=== PATIENT | female | born 1935 | race Caucasian/White ===

== ENCOUNTER 2018-09-20 19:03 | Inpatient (IN) | payer MEDICARE, BC ==
--- OUTSIDE RECORDS SUMMARY | 2018-09-20 19:17 | XMS REPORT | Continuity of Care Document ---
:1935 External Reference #:[id number] Author Name Eugenio Humphrey Care Team Providers Name Role Phone Ayanna Barakat MD Primary Care Physician Unavailable Payers Date Identification Numbers Payment Provider Subscriber Policy Number: [id number] Medicare Shonda Hudson PayID: [id number] [facility] [address] [place] [address] Problems Active Problems Provider Date Closed fracture of clavicle Wendy Turcios M.D. Onset: 09/07/2018 Family History Date Family Member(s) Observation Comments General Diabetes General Heart Disease General Hypertension General Cancer Social History Type Date Description Comments Sex Unknown Lives With Spouse Occupation Retired ETOH Use Occasionally consumes alcohol Tobacco Use Start: Unknown End: Patient is a former smoker Unknown Smoking Status Reviewed: 09/07/18 Patient is a former smoker Exercise Type/Frequency Exercises sporadically Allergies, Adverse Reactions, Alerts Description No Known Drug Allergies Medications Active Medications SIG Qnty Indications Ordering Provider Date Levothyroxine Sodium Unknown Vital Signs Date Vital Result Comment 09/07/2018 11:20am Height 69 inches 5'9" Weight 125.00 lb BP Systolic 130 mmHg BP Diastolic 80 mmHg Body Temperature 98.9 F BMI (Body Mass Index) 18.5 kg/m2 Plan of Treatment 09/07/2018 - Wendy Turcios M.D.M25.512 Pain in left shoulderNew Xrays:Shoulder Left 2+ VWS, Ordered: 09/07/18Follow up:Follow up: 2 [id number] Fracture of unspecified part of left clavicle, initial encou
--- NOTE | 2018-09-20 20:49 | ED ---
Adult Trauma - HPI Summary HPI Summary: 82-year-old female presents with head injury and neck pain today. She was walking and she believes she tripped and fell backwards and hit her head and injured her neck. per they had dinner together and were dancing in [employer]. It was dark out and she ended up tripped and falling first onto her butt and then her head hit the pavement. Her leg may have given out per . She denies any leg pain at this time. She denies any chest pain or shortness of breath. fall was a mechanical fall. She has a history of dementia. She is not on blood thinners. No loss consciousness. No nausea or vomiting. Denies any dizziness. no chest pain or shortness of breath. States she just has pain on the right side of her neck. No other injury. Denies any hip pain. has a healing right clavicle fracture. has a jc in one of hips for previous fracture. history is provided by due to patient dementia. states that she is not on her thyroid medication currently as they r monitoring her tsh. - History of Current Complaint Chief Complaint: EDNeckComplaint Stated Complaint: FALL, HEAD INJURY, NECK/LEFT LEG PAIN PER SON Time Seen by Provider: 09/20/18 20:35 Pain Intensity: 10 - Allergy/Home Medications Allergies/Adverse Reactions: Allergies Allergy/AdvReac Type Severity Reaction Status Date / Time MS Stark [From Novocain] Allergy DIZZINESS Verified 09/20/18 19:11 AND PASSES OUT Home Medications: Home Medications Ergocalciferol CAP* [Drisdol CAP*] 50,000 unit PO WEEKLY 09/20/18 [History Confirmed 09/20/18] Escitalopram * 5 mg PO DAILY 09/20/18 [History Confirmed 09/20/18] Vitamin B12 1,000 mcg PO DAILY 09/20/18 [History Confirmed 09/20/18] PMH/Surg Hx/FS Hx/Imm Hx Endocrine/Hematology History: Reports: Hx Thyroid Disease - HYPOTHYROID Denies: Hx Anticoagulant Therapy Cardiovascular History: Denies: Hx Pacemaker/ICD Musculoskeletal History: Reports: Hx Arthritis Sensory History: Reports: Hx Contacts or Glasses - GLASSES FOR DISTANCE, Hx Hearing Aid - BILATERAL Opthamlomology History: Reports: Hx Contacts or Glasses - GLASSES FOR DISTANCE Psychiatric History: Denies: Hx Panic Disorder - Surgical History Surgery Procedure, Year, and Place: TONSILS AGE 3. LEFT HIP SURGERY. COLONOSCOPY Hx Anesthesia Reactions: No Infectious Disease History: No Infectious Disease History: Denies: Traveled Outside the [place] in Last 30 Days - Family History Known Family History: Positive: Non-Contributory - Social History Alcohol Use: Weekly Alcohol Amount: 1 X 3-4 TIMES PER WEEK Substance Use Type: Reports: None Smoking Status (MU): Former Smoker Amount Used/How Often: X 10-15 YEARS Review of Systems Negative: Fever Negative: Chest Pain Negative: Shortness Of Breath Positive: Myalgia - neck pain Negative: Headache All Other Systems Reviewed And Are Negative: Yes Physical Exam Triage Information Reviewed: Yes Vital Signs On Initial Exam: Initial Vitals Temp Pulse Resp BP Pulse Ox 97.7 F 66 14 159/76 96 09/20/18 19:04 09/20/18 19:04 09/20/18 19:04 09/20/18 19:04 09/20/18 19:04 Vital Signs Reviewed: Yes Appearance: Positive: Well-Appearing Skin: Positive: Warm, Dry Head/Face: Positive: Normal Head/Face Inspection Eyes: Positive: Normal, Conjunctiva Clear ENT: Positive: Pharynx normal Respiratory/Lung Sounds: Positive: Clear to Auscultation, Breath Sounds Present Cardiovascular: Positive: Normal, RRR Abdomen Description: Positive: Nontender, Soft Bowel Sounds: Positive: Present Musculoskeletal: Positive: Strength/ROM Intact - legs, Other - nontender legs, good pulses, nontender arms Neurological: Positive: Sensory/Motor Intact, Alert, Oriented to Person Place, Time, CN Intact II-III Psychiatric: Positive: Normal - Carine Coma Scale Best Eye Response: 4 - Spontaneous Best Motor Response: 6 - Obeys Commands Best Verbal Response: 5 - Oriented Coma Scale Total: 15 Diagnostics - Vital Signs Vital Signs Temp Pulse Resp BP Pulse Ox 09/20/18 19:04 97.7 F 66 14 159/76 96 - Laboratory Result Diagrams: 09/20/18 22:32 09/20/18 22:32 Lab Statement: Any lab studies that have been ordered have been reviewed, and results considered in the medical decision making process. - CT brain CT Interpretation Completed By: Radiologist Summary of CT Findings: IMPRESSION: No acute intracranial abnormality. neck CT Interpretation Completed By: Radiologist Summary of CT Findings: IMPRESSION: Transverse fracture through the body of C2 with mild displacement. Nondisplaced right C7 laminar fracture. thoracic CT Interpretation Completed By: Radiologist Summary of CT Findings: IMPRESSION: No thoracic spine fracture or other acute traumatic CT pathology. pelvis CT Interpretation Completed By: Radiologist Summary of CT Findings: IMPRESSION: There are acute mildly displaced fractures of the left superior and inferior. pubic rami and left pubic bone. lumbar CT Interpretation Completed By: Radiologist Summary of CT Findings: IMPRESSION: No acute lumbar spine fracture. - EKG No standard instances Cardiac Rate: NL EKG Rhythm: Sinus Rhythm Summary of EKG Findings: sinus rhythm Re-Evaluation - Re-Evaluation First Eval Comment: discussed results with Second Eval Re-Evaluation Time: 23:42 Comment: patient now states head hurts which did not before Adult Trauma Course/Dx - Course Course Of Treatment: 82-year-old female presents with head injury and neck pain today. She was walking and she believes she tripped and fell backwards and hit her head and injured her neck. Her leg may have given out. She denies any leg pain at this time. She denies any chest pain or shortness of breath. fall was a mechanical fall. She has a history of dementia. She is not on blood thinners. No loss consciousness. No nausea or vomiting. Denies any dizziness. States she just has pain on the right side of her neck. No other injury. Denies any hip pain. On exam normal neuro exam. Tenderness over right side of neck. Patient was placed in a c-collar. Nontender hips. Full range of motion of hips. Nontender legs. CT brain shows no acute findings. CT neck shows c2 fracture. spoke with dr kenny who recommends admission and [place] j collar. although patient had no pain in hips on exam patient complainted to aide that has left hip pain so will get CT pelvis. CT pelvic shows pubic rami fracture. discussed case with dr carvajal who agrees to admit. placed patient in atka j. - Diagnoses Differential Diagnosis/HQI/PQRI: Positive: Contusion(s), Fracture, Sprain Provider Diagnoses: Fall, Head injury, C2 cervical fracture, Pubic ramus fracture, C7 cervical fracture Discharge - Sign-Out/Discharge Documenting (check all that apply): Patient Departure - Discharge Plan Condition: Stable Disposition: ADMITTED TO [facility] Referrals: Ayanna Barakat MD [Primary Care Provider] - - Billing Disposition and Condition Condition: STABLE Disposition: Admitted to [facility]
[2018-09-20 22:40] LABS: ABS Basophils 0.1 10^3/ul (0-0.2); ABS Eosinophils 0.2 10^3/ul (0-0.6); ABS Lymphocytes 2.1 10^3/ul (1.0-4.8); ABS Neutrophils 12.4 10^3/ul (1.5-7.7); Eosinophil % 1.3 %; Hematocrit 37 % (35-47); Hemoglobin 12.4 g/dL (12.0-16.0); Lymphocyte % 13.1 %; Mean Corpuscular HGB Conc 33 g/dL (31-36); Mean Corpuscular Hemoglobin 27 pg (27-31); Mean Corpuscular Volume 81 fL (80-97); Mean Platelet Volume 7.7 fL (7.4-10.4); Platelet Count 280 10^3/uL (150-450); Red Blood Count 4.57 10^6 /uL (3.70-4.87); Red Cell Distribution Width 14 % (10-15); White Blood Count 15.7 10^3/uL (3.5-10.8)
[2018-09-20 22:50] LABS: Activated Partial Thrombo Time 36.6 seconds (26.0-38.0); INR 0.93 (0.82-1.09)
[2018-09-20 22:56] LABS: Albumin 4.1 g/dL (3.2-5.2); Albumin/Globulin Ratio 1.3 (1-3); BUN/Creatinine Ratio 17.7 (8-20); Calcium 9.3 mg/dL (8.6-10.3); EGFR Non-African American 55.4 (>60); Globulin 3.1 g/dL (2-4); Potassium 4.3 mmol/L (3.5-5.0); Total Bilirubin 0.3 mg/dL (0.2-1.0); Total Protein 7.2 g/dL (6.4-8.9)
[2018-09-20] MEDS ORDERED: Acetaminophen TAB* 325 MG PO ONE (23:20)
--- NOTE | 2018-09-21 02:10 | HP ---
HISTORY AND PHYSICAL: DATE OF ADMISSION: 09/21/18 PRIMARY CARE PROVIDER: Dr. Barakat. CHIEF COMPLAINT: Fall. HISTORY OF PRESENT ILLNESS: Ms. Hudson is an 82-year-old with a history of dementia, hypothyroidism, and depression, who was out with her after dinner, dancing on [employer] when she suffered a mechanical fall. It was stated that she tripped. She fell down landing first on her buttocks then hitting her head on the pavement. The patient is unable to tell me any other history. She tells me that she rolled out of bed. The patient's is not present at the time of my evaluation. The patient currently reports no pain whatsoever. PAST MEDICAL HISTORY: 1. Depression. 2. Hypothyroidism. 3. Dementia. PAST SURGICAL HISTORY: 1. Tonsillectomy. 2. Left hip ORIF. ALLERGIES: No known drug allergies. MEDICATIONS: 1. Vitamin B12 1000 mcg p.o. daily. 2. Ergocalciferol 50,000 units p.o. weekly. 3. Lexapro 5 mg p.o. daily. FAMILY HISTORY: Mom had diabetes, dad had thyroid cancer; this is based off prior documented history and physical. SOCIAL HISTORY: The patient is a former smoker. She is unable to tell me when she quit, she states it was many years ago. She does admit to drinking 1 glass of wine 2 to 3 times a week. She lives with her . She is . She has 3 children. Her is her healthcare proxy. REVIEW OF SYSTEMS: A complete 11-system review of systems was obtained. Pertinent positives and negatives are as per HPI; however, again the patient has dementia, I question the validity of her answers as she asks me approximately 5 times in the course of 20 minutes what my name is. PHYSICAL EXAMINATION GENERAL: The patient is a well-developed, petite, elderly female seen sitting up in the stretcher with a cervical collar in place, in no acute distress. VITAL SIGNS: Blood pressure 160/81, pulse 75, respirations 14, temp 97.7, O2 sat 96% on room air. HEENT: Pupils are equal and round. Extraocular muscles are intact. Oropharynx is clear. Oral mucosa is slightly dry. NECK: Exam is deferred as the patient is in a cervical collar. CARDIAC: Normal S1, S2. Regular rate and rhythm. I do not appreciate any murmurs. There is no lower extremity edema. PULMONARY: Lungs are clear to auscultation anteriorly and at the lateral bases. ABDOMEN: Bowel sounds are present. Abdomen is soft, nontender, nondistended. The patient states that she has to urinate, but she has a catheter in place. MUSCULOSKELETAL: There is no cyanosis or clubbing of the digits. There is full active range of motion of all 4 extremities. NEURO: Cranial nerves II through XII are grossly intact. Sensation is intact to light touch throughout. Strength is 5/5 and symmetric in both upper and lower extremities bilaterally. PSYCH: The patient is very confused. SKIN: Warm and dry. There are no rashes. The patient does have a scabbed over excoriation on the left knee. There is also purplish bruise overlying the left alamo. DIAGNOSTIC STUDIES/LAB DATA: WBC 15.7, hemoglobin 12.4, hematocrit 37, platelets 280. INR 0.93. Sodium 139, potassium 4.3, chloride 105, CO2 29, BUN 17, creatinine 0.96, glucose 114, calcium 9.3, bilirubin 0.3. AST 23, ALT 17, alk phos 115. Albumin 4.1. EKG reveals normal sinus rhythm with nonspecific ST-T wave abnormalities. Cervical spine CT reveals transverse fracture through the body of C2 with mild displacement and a nondisplaced right C7 laminar fracture. Lumbar spine CT: No acute lumbar spine fracture. Thoracic spine CT: No thoracic spine fracture or other acute traumatic CT pathology. CT brain: There is no acute intracranial abnormality. Pelvis CT: There are acute mildly displaced fractures of the left superior and inferior pubic rami and left pubic bone. ASSESSMENT: Ms. Hudson is an 82 yo relatively healthy female who has dementia and hypothyroidism who was dancing with her when she had a mechanical fall landing first onto her buttock then striking her head on the pavement and was found to have left pelvic fractures and C2 and C7 fractures. PLAN: 1. Left pelvic fractures: The patient will be weight bearing as tolerated. Continue Tylenol for pain control. PT eval will be needed once she is off bedrest which I anticipate will be after she is seen by Neurosurgery. 2. C2 and C7 fractures: The patient remains in a cervical collar. A more properly fitting [place] J collar will need to be obtained. Dr. Burt has been contacted by the ER provider and he will see her in the morning. Continue Tylenol for pain control. 3. Hypothyroidism: The patient is reportedly temporarily off her synthroid. Dr. Barakat will be taking over in the morning and can decide what to do with her dosing. 4. Dementia: Continue supportive care. 5. Depression: Continue lexapro. 6. DVT prophylaxis: SQ heparin 7. Full code [id number]/CPS #: [id number] MTDD
[2018-09-21 04:02] LABS: Urine Appearance Clear; Urine Bacteria Absent (Absent); Urine Bilirubin Negative (Negative); Urine Blood 1+ (Negative); Urine Color Straw; Urine Glucose Negative (Negative); Urine Ketones Negative (Negative); Urine Nitrite Negative (Negative); Urine Protein Negative (Negative); Urine Red Blood Cell 2+(6-10/hpf) (Absent); Urine Squamous Epithelial Cell Present (Absent); Urine Urobilinogen Negative (Negative); Urine White Blood Cell Trace(0-5/hpf) (Absent)
[2018-09-21] MEDS: Heparin VIAL(*) 5000 UNITS/ML VIAL (FIVE THOUSAND) SUBCUT SCH ×3 (05:39→21:57)
[2018-09-21] MEDS: Acetaminophen TAB* 325 MG PO PRN ×2 (05:41→20:03)
--- NOTE | 2018-09-21 05:46 | CONS ---
CONSULTATION REPORT: DATE OF CONSULT: 09/21/18 HISTORY OF PRESENT ILLNESS: The patient is a very pleasant 82-year-old female with history of dementia who presented to the emergency room after a reported fall after having dinner with her and dancing in the [employer]. We were requested to see the patient by the emergency room team because of CT scan findings consistent with a C2 type 3 fracture. The patient also had a trauma workup, was found to have pelvic fractures. Patient had recently been diagnosed with a clavicular fracture. The patient is , lives with her , who accompanied her at the emergency room visit. The patient was seen at the emergency room. History was limited because of the patient's dementia. Details were obtained from patient's records. PAST MEDICAL HISTORY: The patient is not able to provide any history. Per the hospital records, the patient has a history of dementia, thyroid disease, arthritis, hearing aids. PAST SURGICAL HISTORY: Tonsillectomy, left hip surgery, and colonoscopy. MEDICATIONS: The patient was on: 1. Ergocalciferol. 2. Citalopram. 3. Vitamin B12. ALLERGIES: PROCAINE, FAMILY HISTORY: Noncontributory. SOCIAL HISTORY: Tobacco negative. The patient is a former smoker. Alcohol weekly. Recreational use negative. The patient is retired. 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 PHYSICAL EXAM: The patient is not in acute distress. She is awake, alert, and oriented x1. Her pupils are equal and reactive. Cranial nerves II through XII are grossly intact. Motor 4 to 5/5 in all extremities. Sensory grossly intact to light touch. Deep tendon reflexes are +1 bilaterally. No clonus, no Babinski's. Lyndon's negative. Straight leg raise is negative in the sitting position. The patient has no tenderness to palpation of the thoracic, and lumbar spine. She does have [place]-J collar and she has mild tenderness to palpation of cervical spine. DIAGNOSTIC STUDIES/LAB DATA: The patient had a CT scan of the brain that did not reveal any acute intracranial abnormalities. There were no specific calcification as reported in radiology report. The patient had a CT scan of the cervical spine revealing a C2 type 3 fracture with no significant displacement and a right C7 lamina fracture. The patient had a CT scan of the thoracic and lumbar spine that revealed scoliosis, degenerative disease, but no evidence of fracture. ASSESSMENT: The patient is a very pleasant 82-year-old female who is status post a fall with C2 type 3 fracture and pelvic fractures. PLAN: The patient at this point is doing quite well. She has tolerated the [place]- J collar quite well. We would advocate for conservative treatment in the beginning and close observation as type 3 fractures have the potential of healing. A small percentage of this though will develop instability or displacement and will require surgical intervention. For this reason, I would recommend to keep the [place]-J collar on. The patient may benefit from CTA of the neck as the fracture line crosses the foramen transversarium. Thank you for allowing us to participate in the care of this patient. Please do not hesitate to contact our office in case you have any further questions or concerns regarding the care of this patient. [id number]/CPS #: [id number] NICKOLAS
[2018-09-21] MEDS: Escitalopram * 5 MG TAB PO SCH (09:38)
[2018-09-21] MEDS: Levothyroxine TAB* 50 MCG TAB PO SCH (09:38)
[2018-09-21] MEDS: Cyanocobalamin TAB* 500 MCG PO SCH (09:38)
[2018-09-21] MEDS ORDERED: Iodixanol* (CONTRAST) 320 MG/ML 100 ML SDV IV ONE (10:08)
[2018-09-22] MEDS: Acetaminophen TAB* 325 MG PO PRN ×6 (00:09→23:42)
[2018-09-22] MEDS: Levothyroxine TAB* 50 MCG TAB PO SCH (05:30)
[2018-09-22] MEDS: Heparin VIAL(*) 5000 UNITS/ML VIAL (FIVE THOUSAND) SUBCUT SCH ×3 (05:30→21:46)
[2018-09-22 06:06] LABS: ABS Basophils 0.1 10^3/ul (0-0.2); ABS Eosinophils 0.1 10^3/ul (0-0.6); ABS Lymphocytes 1.9 10^3/ul (1.0-4.8); ABS Monocytes 0.8 10^3/ul (0-0.8); ABS Neutrophils 7.8 10^3/ul (1.5-7.7); Hematocrit 38 % (35-47); Hemoglobin 12.7 g/dL (12.0-16.0); Lymphocyte % 18.2 %; Mean Corpuscular HGB Conc 34 g/dL (31-36); Mean Corpuscular Hemoglobin 27 pg (27-31); Mean Corpuscular Volume 80 fL (80-97); Mean Platelet Volume 8.1 fL (7.4-10.4); Nucleated Red Blood Cells % 0.1; Platelet Count 268 10^3/uL (150-450); Red Blood Count 4.74 10^6 /uL (3.70-4.87); Red Cell Distribution Width 14 % (10-15); White Blood Count 10.6 10^3/uL (3.5-10.8)
[2018-09-22 06:21] LABS: BUN/Creatinine Ratio 14.9 (8-20); Calcium 9.3 mg/dL (8.6-10.3); EGFR African American 90.5 (>60); EGFR Non-African American 74.8 (>60); Potassium 3.8 mmol/L (3.5-5.0)
[2018-09-22] MEDS: Escitalopram * 5 MG TAB PO SCH (08:41)
[2018-09-22] MEDS: Cyanocobalamin TAB* 500 MCG PO SCH (08:41)
[2018-09-22] MEDS ORDERED: Senna TAB PO PRN (11:47)
[2018-09-22] MEDS ORDERED: Magnesium Hydroxide LIQ* 30 ML UDC PO PRN (11:48)
[2018-09-22] MEDS: Docusate CAP* 100 MG PO SCH ×2 (12:08→21:46)
--- NOTE | 2018-09-22 13:27 | PN ---
Progress Note - Progress Note Date of Service: 09/22/18 SOAP: Subjective: []No events ON. Tolerates MJ collar well. and son at bedside this am. Not OOB yet. Objective: []VSS AAOx1, IAN, CN II-XII grossly intact Motor 4-5/5 all exremities. No pronator drift Sensory grossly intact to light touch. Assessment: []82 yo f sp fall C2 Type III fracture, Rt C7 lamina fracture. Pelvic fractures , recent clavicle fracture Plan: []Monitor VS, Neurochecks Maintain MJ collar at all times CTA revealed good alignment of spine without displacement of fracture or injury to vertebral arteries. Discussed with patient's and son in extend regarding patient's condition and radiological findings as well as treatment options including immobilization with MJ collar and repeated imaging vs surgical intervention. Risks and benefits of each approach were discussed in details, including displacement of fracture, pseudoarthrosis, neurological injury, paralysis, , vascular injury and stroke. Patient's and son would favor conservative treatment with collar and frequent observation for now, but will discuss and notify us if would like to consider surgical intervention. XR of Cspine today or tomorrow. Appreciate IM care. Yvrose Burt MD
--- NOTE | 2018-09-22 14:16 | CONS ---
CONSULTATION REPORT: DATE OF CONSULT: 09/22/18 ATTENDING PHYSICIAN: Nixon Hassan MD CHIEF COMPLAINT: Left shoulder and pelvis. HISTORY OF PRESENT ILLNESS: Ms. Hudson is an 82-year-old female, who had presented to the hospital on [place] She had landed first on her buttocks and then hit her head on the pavement. She was unable to give any medical history, but this is also due to her history of dementia. Similarly, she was unable to tell me any of the history and said she would prefer to go back to sleep, so I did not get much of a story from her and the history is from her chart. When she was in the emergency room, she was worked up and was found to have a C2 fracture and was placed into a collar. CAT scan of the pelvis was also obtained, which found a nondisplaced pubic rami fracture as well. She also has a left clavicle fracture, which was sustained on 09/06/18, from an unwitnessed fall at home. She had seen my partner, Dr. Turcios, for this and considering she was well aligned, she was to have followed up on Monday for a check and make sure she was doing well. When I asked her if she has any trouble, she reports that she is doing alright. PAST MEDICAL HISTORY: Depression, hypothyroidism, dementia. PAST SURGICAL HISTORY: 1. Tonsillectomy. 2. Percutaneous pinning, left hip, 2006, by Dr. Ring. MEDICATIONS ON ADMISSION: 1. Vitamin B12. 2. Vitamin D. 3. Lexapro 5 mg daily. MEDICATION ALLERGIES: No known drug allergies. FAMILY HISTORY: Noncontributory. SOCIAL HISTORY: Noncontributory. REVIEW OF SYSTEMS: There is a review of systems on her H and P. PHYSICAL EXAM: General: Elderly female, in a cervical collar, sleeping in the hospital bed. She is easily arousable, but does drift off fairly quickly. Left shoulder: She holds the arm in adduction, but when I asked her to, she can come out into neutral and bring the arm up to 45 degrees of forward elevation. Palpation finds some soreness over the distal clavicle, but it is difficult to say if this was from the motion or the clavicle itself. Pelvis: she is stable to compression as well as rotation about the pelvis. DIAGNOSTIC STUDIES: X-rays of the clavicle as well as a CAT scan of the pelvis are available for review. Clavicle x-rays show good alignment of the distal clavicle where she has the fracture. She also has a significant amount of osteoarthritic change where she is completely [id number] in the glenohumeral joint. In regards to the pelvis, she has a rami fracture, which is nondisplaced. ASSESSMENT: 1. Healing left clavicle fracture. 2. Osteoarthritis, left shoulder. 3. Nondisplaced pelvic fracture. PLAN: I did try to discuss with her a little bit what was going on and she reports that she would just like to go back to sleep. In regards to the left shoulder, she may fully weightbear as tolerated, so she can use a walker to help support herself, but I do not believe she will be able to tolerate much. Even without the fracture, she is [id number] in the glenohumeral joint and that also can be quite limiting for weightbearing on the upper extremity. If however, she tolerates it well, she may obviously then continue with full weight on her left upper extremity. In regards to the pelvis , she has a stable pattern with no concerning issue, so she may fully weightbear without restriction on her lower extremities. Considering she has sustained a spine fracture and a pelvis fracture, 2 weeks prior sustained a distal clavicle fracture and in 2006 sustained a femoral neck fracture which required a percutaneous pinning and Dr. Ring documented a distal radius fracture several months prior to that, once she is out and moving a bit better, a followup bone density scan to see if being more aggressive with one of the newer osteoporosis medications can hopefully reduce some of her morbidity in the future. Her last DEXA screen was in 2009, which had found osteopenia of the lumbar spine and osteoporosis of the right hip. [id number]/[facility] #: [id number] NICKOLAS
[2018-09-22] MEDS: RIVASTIGMINE 13.3 MG TRANSDERM SCH (17:26)
[2018-09-23] MEDS: Heparin VIAL(*) 5000 UNITS/ML VIAL (FIVE THOUSAND) SUBCUT SCH ×3 (05:48→22:20)
[2018-09-23] MEDS: Levothyroxine TAB* 50 MCG TAB PO SCH (05:48)
[2018-09-23] MEDS: Acetaminophen TAB* 325 MG PO PRN (08:35)
--- NOTE | 2018-09-23 09:34 | PN ---
Subjective - Subjective Reason for Note: Progress Note History: She has dementia with limited short term memory. She is in [facility], knows her name, has no idea of the date/year. She cannot give an account of herself - why she is in the hospital. She denies any pain. According to PT, she is reluctant to mobilize, but she has been to and fro the bathroom with assists. Active Problems: Active Problems C7 cervical fracture (Acute) S12.600A Closed C2 fracture (Acute) S12.100A Fall at home (Acute) W19.XXXA, Y92.009 Fracture of multiple pubic rami (Acute) S32.599A Pubic bone fracture (Acute) S32.509A Alzheimer disease (Chronic) G30.9, F02.80 Body mass index (BMI) less than 16.5 (Chronic) Z68.1 Closed left clavicular fracture (Chronic) S42.002A Hypothyroidism (Chronic) E03.9 Osteoporosis (Chronic) M81.0 Sarcopenia (Chronic) M62.84 Current Medications: Current Medications Acetaminophen (Tylenol Tab*) 650 mg PO Q4H PRN PRN Reason: PAIN Last Admin: 09/23/18 08:35 Dose: 650 mg Cyanocobalamin (Vitamin B12 Tab*) 1,000 mcg PO DAILY [facility] Last Admin: 09/22/18 08:41 Dose: 1,000 mcg Docusate Sodium (Colace Cap*) 100 mg PO BID [facility] Last Admin: 09/22/18 21:46 Dose: 100 mg Escitalopram Oxalate (Lexapro *) 5 mg PO DAILY [facility] Last Admin: 09/22/18 08:41 Dose: 5 mg Heparin Sodium (Porcine) (Heparin Vial(*)) 5,000 units SUBCUT Q8HR [facility] Last Admin: 09/23/18 05:48 Dose: 5,000 units Levothyroxine Sodium (Synthroid Tab*) 50 mcg PO DAILY@0600 [facility] Last Admin: 09/23/18 05:48 Dose: 50 mcg Magnesium Hydroxide (Milk Of Magnesia Liq*) 30 ml PO DAILY PRN PRN Reason: CONSTIPATION Pto:Rivastigmine 13. (3 Mg Patch) 13.3 mg TRANSDERM DAILY [facility] Last Admin: 09/22/18 17:26 Dose: 13.3 mg Senna (Senokot Tab*) 1 tab PO BEDTIME PRN PRN Reason: CONSTIPATION Home Medications: Home Medications Medication Instructions Recorded Confirmed Type Ergocalciferol CAP* [Drisdol CAP*] 50,000 unit PO WEEKLY 09/20/18 09/20/18 History Escitalopram * 5 mg PO DAILY 09/20/18 09/20/18 History Vitamin B12 1,000 mcg PO DAILY 09/20/18 09/20/18 History Allergies: Allergies Allergy/AdvReac Type Severity Reaction Status Date / Time procaine Allergy Dizziness Verified 09/21/18 01:40 Objective - Vital Signs Vital Signs: Vital Signs 09/22/18 09/22/18 09/22/18 11:23 16:07 20:05 Temperature 97.5 F 98.1 F Pulse Rate 82 60 Respiratory 18 18 18 Rate Blood Pressure 134/71 140/55 (mmHg) O2 Sat by Pulse 97 96 Oximetry 09/22/18 09/22/18 09/23/18 20:06 23:34 04:00 Temperature 97.8 F 98.2 F 98.0 F Pulse Rate 69 71 76 Respiratory 18 16 17 Rate Blood Pressure 161/64 155/76 148/67 (mmHg) O2 Sat by Pulse 99 96 97 Oximetry 09/23/18 07:35 Temperature 98.3 F Pulse Rate 80 Respiratory 14 Rate Blood Pressure 131/69 (mmHg) O2 Sat by Pulse 97 Oximetry - Intake and Output Intake and Output: Intake & Output 09/20/18 09/21/18 09/22/18 09/23/18 11:59 11:59 11:59 11:59 Intake Total 240 1720 590 Output Total 1450 1500 675 Balance -1210 220 -85 Weight 107 lb Intake: Oral 240 1720 590 Output: Urine 250 425 Smith 1200 1250 250 Residual 250 Smith 16 Fr 250 Other: # Bowel Movements 1 0 Estimated Stool Amount Medium ADLs: Meal Record Start: 09/21/18 01: 33 Freq: Status: Active Protocol: Created 09/21/18 01:33 System (Rec: 09/21/18 01:33 System SSU-C11) Document 09/21/18 10:41 [id number] (Rec: 09/21/18 10:42 [id number] SSU-C02) Document 09/21/18 14:08 [id number] (Rec: 09/21/18 14:09 [id number] SSU-C02) Document 09/22/18 11:51 [id number] (Rec: 09/22/18 11:51 [id number] SSU-M07) Document 09/22/18 14:31 [id number] (Rec: 09/22/18 14:31 [id number] SSU-M07) Intake and Output Start: 09/21/18 01: 33 Freq: DAILY@0600,1400,2200 Status: Active Protocol: Created 09/21/18 01:33 System (Rec: 09/21/18 01:33 System SSU-C11) Document 09/21/18 04:21 [id number] (Rec: 09/21/18 04:21 [id number] SSU-M07) Document 09/21/18 08:54 [id number] (Rec: 09/21/18 08:56 [id number] SSU-C02) Document 09/21/18 10:41 [id number] (Rec: 09/21/18 10:42 [id number] SSU-C02) Document 09/21/18 14:08 [id number] (Rec: 09/21/18 14:09 [id number] SSU-C02) Document 09/21/18 22:21 [id number] (Rec: 09/21/18 22:22 [id number] SSU-C08) Document 09/22/18 05:00 [id number] (Rec: 09/22/18 07:01 [id number] SSU-M14) Document 09/22/18 05:40 [id number] (Rec: 09/22/18 05:44 [id number] SSU-M13) Document 09/22/18 14:22 [id number] (Rec: 09/22/18 14:23 [id number] SSU-L02) Document 09/22/18 21:50 [id number] (Rec: 09/22/18 21:50 [id number] SSU-L02) Document 09/23/18 02:58 [id number] (Rec: 09/23/18 02:58 [id number] SSU-C19) Document 09/23/18 06:33 [id number] (Rec: 09/23/18 06:33 [id number] SSU-M07) - Physical Exam General: No Cyanosis, No Anemia, No Jaundice, No Clubbing Skin: Normal: Rash Lungs and Chest: Yes: Chest Expansion Full, Chest Expansion Symetrica, Percussion Note Resonant, Vessicular Breath Sounds. No: Crackles, Wheezes Heart Rate and Rhythm: Regular Additional Cardiovascular: Yes: Normal Heart Sounds. No: Heart Murmur, Pedal Edema Abdominal Exam: Yes: Soft, Bowel Sounds Present. No: Distention, Abdominal Tenderness - Extremities Cranial Nerves II-XII Intact: Yes Limbs: Normal Power - right handed, Normal Tone, Normal Coordination - Tremor left> right on finger nose - Neuro Orientation: Person, Place Speech: Normal Assessment - Problem List Assessment: Patient Problems C7 cervical fracture (Acute) Closed C2 fracture (Acute) Fall at home (Acute) Fracture of multiple pubic rami (Acute) Pubic bone fracture (Acute) Alzheimer disease (Chronic) Body mass index (BMI) less than 16.5 (Chronic) Closed left clavicular fracture (Chronic) Hypothyroidism (Chronic) Osteoporosis (Chronic) Sarcopenia (Chronic) Plan: C7 cervical fracture (Acute)Closed C2 fracture (Acute)Fall at home (Acute) Fracture of multiple pubic rami (Acute) Pubic bone fracture (Acute) She describes no pain - though she may not remember the pain. She is able to get out of bed, but is reluctant. PT is evaluating her - it is unclear whether with her dementia she will respond to PT Alzheimer disease (Chronic) Major barrier - increases her risk of falling Body mass index (BMI) less than 16.5 (Chronic) Clearly, there are nutritional problems. On 03/06/2014 she was 135 lbs - her current weight is 107 lbs. Closed left clavicular fracture (Chronic) This is from a previous, recent fall Hypothyroidism (Chronic) I have discussed her replacement with Dr. Ayanna Barakat Osteoporosis (Chronic) Sarcopenia (Chronic) I wonder about her nutritional status at home. However, she has hypervitaminosis D - so she likely is compliant with her vitamin D supplementation. She requires treatment for osteoporosis. From the compliance point of view PTH analogues are not the best bet. I recommend either denosumab or zolendronic acid. There is no evidence this affects healing of fractures. However, with large fractures, much of the dose of bisphosphonate may be taken up by the healing bone. Hence denosumab may be the better choice. Choosing the timing depends upon issues of cost (DRG ) and likelihood of patient receiving the dose after discharge. If she is to return home, she requires a socially responsible investment adviser/dietitian to pay attention to her intake and to prevent further muscle/bone loss through poor nutrition.
[2018-09-23] MEDS: Docusate CAP* 100 MG PO SCH ×2 (09:59→21:18)
[2018-09-23] MEDS: Escitalopram * 5 MG TAB PO SCH (09:59)
[2018-09-23] MEDS: Cyanocobalamin TAB* 500 MCG PO SCH (09:59)
[2018-09-23] MEDS: RIVASTIGMINE 13.3 MG TRANSDERM SCH (10:00)
--- NOTE | 2018-09-24 00:27 | PN ---
Progress Note - Progress Note Date of Service: 09/23/18 SOAP: Subjective: []Delayed entry. Patient was seen early in am in [facility]. MJ on. No events ON Objective: []VSS AAOx1, IAN, CN II-XII grossly intact Motor 4-5/5 all extremities Sensory grossly intact to light tough Assessment: [] 82 yof reported fall C2 Type II fracture, Rt C7 lamina fracture Plan: []Monitor VS, Neurochecks Maintain MJ collar at all times Awaiting family's final decision regarding conservative approach. Consider AP and Lateral XR of C spine in am Appreciate IM, orthopedic care Yvrose Burt MD
[2018-09-24] MEDS: Levothyroxine TAB* 50 MCG TAB PO SCH (05:28)
[2018-09-24] MEDS: Heparin VIAL(*) 5000 UNITS/ML VIAL (FIVE THOUSAND) SUBCUT SCH ×3 (05:28→21:01)
[2018-09-24] MEDS: Cyanocobalamin TAB* 500 MCG PO SCH (10:14)
[2018-09-24] MEDS: Acetaminophen TAB* 325 MG PO PRN (10:14)
[2018-09-24] MEDS: Docusate CAP* 100 MG PO SCH ×2 (10:14→21:00)
[2018-09-24] MEDS: Escitalopram * 5 MG TAB PO SCH (10:14)
[2018-09-24] MEDS: RIVASTIGMINE 13.3 MG TRANSDERM SCH (10:15)
[2018-09-24] MEDS ORDERED: Haloperidol INJ IV/IM* 5 MG/ML AMP IV SLOW PU PRN (22:30)
--- NOTE | 2018-09-25 00:31 | PN ---
Progress Note - Progress Note Date of Service: 09/24/18 SOAP: Subjective: []Delayed entry. Patient was seen early in am in [facility]. MJ on. No events ON. Patient's and Dr Barakat at the bedside. Objective: []]VSS AAOx1, IAN, CN II-XII grossly intact Motor 4-5/5 all extremities Sensory grossly intact to light tough Assessment: []82 yof reported fall C2 Type II fracture, Rt C7 lamina fracture Plan: []Monitor VS, Neurochecks Maintain MJ collar at all times Discussed with patient's : family's final decision is to attempt conservative approach. AP and Lateral XR of C spine no displacement Follow up in office in two weeks with new XR of C spine. Appreciate IM, orthopedic care Yvrose Burt MD
[2018-09-25] MEDS: Acetaminophen TAB* 325 MG PO PRN ×3 (06:08→18:33)
[2018-09-25] MEDS: Levothyroxine TAB* 50 MCG TAB PO SCH (06:08)
[2018-09-25] MEDS: Heparin VIAL(*) 5000 UNITS/ML VIAL (FIVE THOUSAND) SUBCUT SCH ×3 (06:10→20:57)
[2018-09-25] MEDS: Escitalopram * 5 MG TAB PO SCH (09:46)
[2018-09-25] MEDS: Cyanocobalamin TAB* 500 MCG PO SCH (09:46)
[2018-09-25] MEDS: Docusate CAP* 100 MG PO SCH ×2 (09:46→20:57)
[2018-09-25] MEDS: RIVASTIGMINE 13.3 MG TRANSDERM SCH (09:48)
[2018-09-25 20:23] LABS: Urine Appearance Cloudy; Urine Bacteria Absent (Absent); Urine Bilirubin Negative (Negative); Urine Blood Negative (Negative); Urine Color Yellow; Urine Glucose Negative (Negative); Urine Ketones Trace (Negative); Urine Nitrite Negative (Negative); Urine Protein Negative (Negative); Urine Red Blood Cell 2+(6-10/hpf) (Absent); Urine Specific Gravity 1.029 (1.010-1.030); Urine Squamous Epithelial Cell Present (Absent); Urine Urobilinogen Negative (Negative); Urine White Blood Cell 1+(6-10/hpf) (Absent)
[2018-09-26] MEDS: Acetaminophen TAB* 325 MG PO PRN ×3 (02:59→17:58)
[2018-09-26] MEDS: Levothyroxine TAB* 50 MCG TAB PO SCH (05:37)
[2018-09-26] MEDS: Heparin VIAL(*) 5000 UNITS/ML VIAL (FIVE THOUSAND) SUBCUT SCH ×3 (05:37→22:36)
[2018-09-26 06:15] LABS: ABS Basophils 0.1 10^3/ul (0-0.2); ABS Eosinophils 0.3 10^3/ul (0-0.6); ABS Lymphocytes 2.4 10^3/ul (1.0-4.8); ABS Monocytes 0.6 10^3/ul (0-0.8); ABS Neutrophils 4.9 10^3/ul (1.5-7.7); Eosinophil % 3.4 %; Hematocrit 37 % (35-47); Hemoglobin 12.2 g/dL (12.0-16.0); Lymphocyte % 29.1 %; Mean Corpuscular HGB Conc 33 g/dL (31-36); Mean Corpuscular Hemoglobin 27 pg (27-31); Mean Corpuscular Volume 81 fL (80-97); Mean Platelet Volume 8.3 fL (7.4-10.4); Nucleated Red Blood Cells % 0.1; Platelet Count 265 10^3/uL (150-450); Red Blood Count 4.52 10^6 /uL (3.70-4.87); Red Cell Distribution Width 14 % (10-15); White Blood Count 8.3 10^3/uL (3.5-10.8)
[2018-09-26 06:30] LABS: BUN/Creatinine Ratio 27.6 (8-20); Calcium 9.4 mg/dL (8.6-10.3); EGFR African American 87.7 (>60); EGFR Non-African American 72.5 (>60); Potassium 4.1 mmol/L (3.5-5.0)
[2018-09-26] MEDS: Escitalopram * 5 MG TAB PO SCH (09:37)
[2018-09-26] MEDS: Cyanocobalamin TAB* 500 MCG PO SCH (09:37)
[2018-09-26] MEDS: Docusate CAP* 100 MG PO SCH ×2 (09:37→21:29)
[2018-09-26] MEDS: RIVASTIGMINE 13.3 MG TRANSDERM SCH (09:38)
[2018-09-26] MEDS ORDERED: oxyCODONE TAB* 5 MG TAB PO PRN (18:25)
[2018-09-27] MEDS: Acetaminophen TAB* 325 MG PO PRN ×2 (01:06→06:08)
[2018-09-27] MEDS: Levothyroxine TAB* 50 MCG TAB PO SCH (06:08)
[2018-09-27] MEDS: Heparin VIAL(*) 5000 UNITS/ML VIAL (FIVE THOUSAND) SUBCUT SCH (06:09)
[2018-09-27] MEDS: Docusate CAP* 100 MG PO SCH (07:42)
[2018-09-27] MEDS: RIVASTIGMINE 13.3 MG TRANSDERM SCH (07:42)
[2018-09-27] MEDS: Cyanocobalamin TAB* 500 MCG PO SCH (07:43)
[2018-09-27] MEDS: Escitalopram * 5 MG TAB PO SCH (07:43)
[2018-09-27 11:18] VITALS: BP 135/59
--- NOTE | 2018-09-27 13:44 | DS ---
CC: Dr. Burt; Dr. Hassan; [facility] * DISCHARGE SUMMARY: DATE OF ADMISSION: 09/20/18 DATE OF DISCHARGE: 09/27/18 DISCHARGE DIAGNOSES: 1. Cervical spine fracture, C2, C7. 2. Pelvic fractures. 3. Status post fall. 4. Fracture of the left clavicle, subacute. 5. Alzheimer disease. 6. Hypothyroidism. 7. Abnormality on CT of the liver- probable hemangioma - slight increase in size since 2006. 8. Status post hip fracture open reduction and internal fixation. 9. Status post tonsillectomy. 10. History of depression. 11. B12 deficiency, treated. 12. Vitamin D deficiency, treated. 13. Microscopic hematuria with squamous epithelial cells present on urinalysis. 14. 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 15. Diverticulosis seen on CT scan. 16. Osteoporosis. 17. Left shoulder osteoarthritis. HISTORY: Shonda Hudson is an 82-year-old woman who fell, lost her balance after having been dancing on the [employer]. Please see the dictated admission note for details of the present illness, past medical history, family history, social and personal history, review of systems, and physical examination. DIAGNOSTIC STUDIES/LAB DATA: CBC on 09/20/18: WBC 15.7, H and H 12.4/37, MCV 81, PLT 280,000. White count came down to 8.3. H and H was stable. Coags: INR 0.93, PTT 36.6. Chemistries on 09/20/18: Sodium 139, potassium 4.3, chloride 105, CO2 of 29, BUN and creatinine 17/0.96, glucose 114. Alk phos 115. CMP, otherwise, within normal limits. Repeat chemistries on 09/26/18: BMP: Sodium 137, potassium 4.1, chloride 104, CO2 of 26, BUN and creatinine 21/ 0.76, glucose 93, calcium 9.4. Urinalysis on 09/21/18: Straw, clear; specific gravity 1.010, pH 7. Dipsticks positive for 1+ blood, trace wbc's, rbc's 2+, squamous epithelials present. Urinalysis on 09/25/18: Yellow, cloudy; pH 5, specific gravity 1.029, ketones trace, 1+ leukocyte esterase, wbc's 1+, rbc's 2+ (6 to 10), squamous epithelial cells present. Urinalysis on 09/21/18 and 09/25/18 were no growth. Imaging: Brain CT on 09/20/18 showed no acute intracranial abnormality. Cervical spine CT on 09/20/18 showed transverse fracture to the body of C2 with mild displacement, nondisplaced right C7 laminar fracture. Lumbar CT on 09/20/18 showed no acute lumbar spine fracture. Noted were disk height loss, endplate degenerative spurring, vacuum disk phenomenon throughout the lumbar spine, facet hypertrophy. Thoracic spine CT on 09/20/18 showed no thoracic spine fracture or other traumatic CT pathology. Degenerative changes were seen. Pelvic CT on 09/20/18 showed acute mildly displaced fracture of the left superior and inferior pubic rami and left pubic bone. Neck CTA on 09/21/18 showed calcification of the cavernous sinus of the internal carotid arteries without stenosis. No evidence of vascular injury to the arteries or stenosis. There was a hypervascular nodule adjacent to the right thyroid suggesting a possible parathyroid adenoma. Clavicle x-ray showed persistent fracture of the distal left clavicle compared to 09/07/18 x-ray. Cervical spine x-ray on 09/24/18 showed diffuse osteopenia. Fracture of the base of the odontoid process is not well evaluated with no evidence of listhesis on the study. Abdomen and pelvis CT 09/26/18 showed dystrophic calcification of the liver. Low- attenuation lesion in the left lobe of the liver, 3.2 x 2.9 x 3.5 cm, on review seen previously on 10/09/06 CT, is now slightly larger. Extensive diverticulosis. Minimal calcific atherosclerotic disease of the abdominal aorta was noted. Scoliosis of the spine was noted. Chest x-ray on 09/26/18 showed no active cardiopulmonary disease. No infiltrates. No evidence of tuberculosis. EKG on 09/20/18 showed sinus rhythm, low-voltage limb leads, left axis deviation , left anterior hemiblock, diffuse T-wave flattening, prolonged QTc. CONSULTATIONS: Orthopedic on 09/22/18, Dr. Hassan: His opinion was that she had a healing left clavicle fracture, osteoarthritis of the left shoulder, nondisplaced pelvic fracture. With regards to the left shoulder, he said that she could be fully weightbearing as tolerated, though she can use a walker to help support herself. Even without the fracture, he noted that she is bone-on- bone in the glenohumeral joint and that she can also be quite limiting for weightbearing on the upper extremity if she tolerated it; however, she could continue to put full weight on her left upper extremity. With regard to the pelvis, she has a stable pattern and no concerning issues, so she may fully weight bear without restriction on her lower extremities. He did recommend when she is out moving a bit better, getting a followup bone density scan to be more aggressive with treatment of her osteoporosis. Neurosurgical consultation, Dr. Burt: His assessment was the patient had a C2 type 3 fracture and pelvic fractures. He felt that she was doing well, tolerating a [place] collar. He advocated for conservative treatment and close observation. He recommended keeping the [place] collar on, getting the CTA of the neck, which was done. Followup consultation from him felt that she was continuing to do well. He discussed it with the family. They agreed with conservative treatment. He saw her on 09/25/18 prior to discharge and at that point, he confirmed conservative approach of the family, recommended office visit in about 2 weeks with new x-ray of the spine. HOSPITAL COURSE: The patient was initially evaluated in the emergency room. She was found to have fractures as noted above. Neurologic exam was normal. She was placed in a cervical collar. It was decided to admit her. On admission , Tylenol was ordered for pain. Physical therapy and occupational therapy evaluations were ordered. She was given DVT prophylaxis with subcutaneous heparin. Initially, she was a full code. This was changed to DNR after discussion with the patient and her family. She stated if anything happened she wanted to "cut her throat." She definitely did not want any forms of mechanical ventilation or artificial nutrition. Tylenol was ordered for pain. She did have some episodes of agitation while in the hospital consistent with her Alzheimer's and delirium. She received Haldol. This seemed to occur in the evening as a result of ing. She was evaluated by physical and occupational therapy. She was able to ambulate. It was felt that she could have improved balance. She complained of pain in the back of her head. She was maintained on rivastigmine patch for Alzheimer disease and escitalopram for depression. I restarted levothyroxine on a lower dose as her recent thyroid function test had shown that her thyroid functions were coming down and her TSH was coming up. She had previously been on 100, then 88 mcg of levothyroxine. I am restarting her on 50 mcg. With regards to the Haldol, she only received it once on 09/24/18, 1 mg. She was evaluated by [facility]. They did not feel she would be a good candidate for an acute rehabilitation admission. We discussed options for care as her felt that he could physically not care for her at home and she is being discharged at this point to [facility] until she heals. DISCHARGE MEDICATIONS: At the time of discharge, she is to be on the following medications: 1. Levothyroxine 50 mcg a day. 2. Rivastigmine patch 13.3 mg daily. 3. Escitalopram 5 mg daily. 4. B12 at 1000 mcg daily. 5. Vitamin D 50,000 units every 2 weeks. 6. Acetaminophen 650 q.4 hours p.r.n. for pain. FOLLOWUP: She is to follow up with me in 1 to 2 weeks. She is to follow up with Dr. Burt in 2 weeks. DISPOSITION: She is improved, being discharged to assisted living. DIET: Regular. ACTIVITY: Weightbearing as tolerated with a walker. She is to have PT for balance. [id number]/[facility] #: [id number] NICKOLAS
== END 2018-09-27 11:25 | DRG 552 ==
LOC: ED 19:03 → SSU 09-21 00:34
PROVIDERS: ADMIT Hospitalist; ATTEND Internal Medicine Geriatric Medicine
DX: S12.100A Unspecified displaced fracture of second cervical vertebra, initial encounter for closed fracture (principal); S32.592A Other specified fracture of left pubis, initial encounter for closed fracture; F05 Delirium due to known physiological condition; S12.601A Unspecified nondisplaced fracture of seventh cervical vertebra, initial encounter for closed fracture; W01.0XXA Fall on same level from slipping, tripping and stumbling without subsequent striking against object, initial encounter; Y93.41 Activity, dancing; Y92.89 Other specified places as the place of occurrence of the external cause; G30.9 Alzheimer's disease, unspecified; F02.80 Dementia in other diseases classified elsewhere, unspecified severity, without behavioral disturbance, psychotic disturbance, mood disturbance, and anxiety; R31.9 Hematuria, unspecified; E03.9 Hypothyroidism, unspecified; Z66 Do not resuscitate; D18.09 Hemangioma of other sites; F32.9 Major depressive disorder, single episode, unspecified; E53.8 Deficiency of other specified B group vitamins; E55.9 Vitamin D deficiency, unspecified; M51.35 Other intervertebral disc degeneration, thoracolumbar region; D35.1 Benign neoplasm of parathyroid gland; E21.5 Disorder of parathyroid gland, unspecified; M81.0 Age-related osteoporosis without current pathological fracture; M19.012 Primary osteoarthritis, left shoulder; M85.88 Other specified disorders of bone density and structure, other site; K57.90 Diverticulosis of intestine, part unspecified, without perforation or abscess without bleeding; K59.00 Constipation, unspecified; S42.032D Displaced fracture of lateral end of left clavicle, subsequent encounter for fracture with routine healing; I70.0 Atherosclerosis of aorta; M41.9 Scoliosis, unspecified; W18.30XD Fall on same level, unspecified, subsequent encounter; Z79.899 Other long term (current) drug therapy; Z83.3 Family history of diabetes mellitus; Z80.8 Family history of malignant neoplasm of other organs or systems; Z87.891 Personal history of nicotine dependence; Z88.8 Allergy status to other drugs, medicaments and biological substances
CPT/HCPCS: 36415; 70450; 70498; 71046; 72040; 72125; 72128; 72131; 72192; 74176; 80048; 80053; 81003; 81015; 85025; 85610; 85730; 87086; 93005; 99284; A9270-GY; G8978-GP-CL; G8979-GP-CK; G8987-GO-CJ; G8988-GO-CI; J1630; J1644; Q9967

== ENCOUNTER → 2018-10-21 | Emergency (ER) | payer MEDICARE, BC ==
[~2018-10-21] MED LIST: NS 0.9% 1000 ML** 1,000 ML IV ONE; Ondansetron INJ* 2 MG/ML VIAL IV ONE
--- NOTE | 2018-10-21 15:56 | ED ---
Complex/Multi-Sys Presentation - HPI Summary HPI Summary: This patient is an 82 year old F BIBA to ED via EMS with a chief complaint of dizziness and weakness since this morning. Patient is in [facility] for a broken neck and pelvis. She had been doing well. Today, for the first time, patient declined breakfast and lunch. Patient is normally able to walk with a walker, but could not today. Per staff, patient was dry heaving and red in the face. At baseline, patient does not have good memory. Patient refused fluids from EMS. The patient rates the pain 0/10 in severity. Symptoms aggravated by nothing. Symptoms alleviated by nothing. Patient reports diaphoresis. Patient denies any pain. - History Of Current Complaint Chief Complaint: EDGeneral Time Seen by Provider: 10/21/18 15:18 Hx Obtained From: Patient, Family/Healthcare Representative, EMS Onset/Duration: Sudden Onset, Lasting Hours - This morning, Still Present Aggravating Factor(s): Nothing Alleviating Factor(s): Nothing Associated Signs And Symptoms: Positive: Dizziness, Weakness, Diaphoresis, Other - Dry heave - Allergies/Home Medications Allergies/Adverse Reactions: Allergies Allergy/AdvReac Type Severity Reaction Status Date / Time alendronate sodium Allergy Unknown Verified 09/26/18 09:45 [From Fosamax] Reaction Details procaine Allergy Dizziness Verified 09/21/18 01:40 raloxifene [From Evista] Allergy Unknown Verified 09/26/18 09:45 Reaction Details PMH/Surg Hx/FS Hx/Imm Hx Endocrine/Hematology History: Reports: Hx Thyroid Disease - HYPOTHYROID Denies: Hx Anticoagulant Therapy, Hx Diabetes, Hx Anemia Cardiovascular History: Denies: Hx Hypertension, Hx Pacemaker/ICD GI History: Denies: Hx Jaundice History: Denies: Hx Renal Disease Musculoskeletal History: Reports: Hx Arthritis Sensory History: Reports: Hx Contacts or Glasses - GLASSES FOR DISTANCE, Hx Hearing Aid - BILATERAL Opthamlomology History: Reports: Hx Contacts or Glasses - GLASSES FOR DISTANCE Neurological History: Reports: Hx Dementia, Other Neuro Impairments/Disorders - C2 FX Psychiatric History: Reports: Hx Depression Denies: Hx Panic Disorder - Surgical History Surgery Procedure, Year, and Place: TONSILS AGE 3. LEFT HIP ORIF Hx Anesthesia Reactions: No Infectious Disease History: No Infectious Disease History: Denies: Traveled Outside the [place] in Last 30 Days - Family History Known Family History: Positive: Non-Contributory - Social History Alcohol Use: Weekly Alcohol Amount: 1 X 3-4 TIMES PER WEEK Hx Substance Use: No Substance Use Type: Reports: None Hx Tobacco Use: No Smoking Status (MU): Former Smoker Amount Used/How Often: X 10-15 YEARS Review of Systems Positive: Skin Diaphoresis Gastrointestinal: Other - Dry heaving Negative: Arthralgia, Myalgia Neurological: Other - Dizziness Positive: Weakness All Other Systems Reviewed And Are Negative: Yes Physical Exam - Summary Physical Exam Summary: GENERAL: Patient is a well-developed and nourished F who is lying comfortable in the stretcher. Patient is not in any acute respiratory distress. HEAD AND FACE: C-collar in place from previous fracture EYES: PERRLA, EOMI x 2. EARS: Hearing grossly intact. MOUTH: Oropharynx within normal limits. NECK: Supple, trachea is midline, no adenopathy, no JVD, no carotid bruit. CHEST: Symmetric, no tenderness at palpation LUNGS: Clear to auscultation bilaterally. No wheezing or crackles. CVS: Regular rate and rhythm, S1 and S2 present, no murmurs or gallops appreciated. ABDOMEN: Soft, non-tender. Bowel sounds are normal. No abnormal abdominal pulsations. EXTREMITIES: Full ROM in all major joints, no edema, no cyanosis or clubbing. NEURO: Alert and oriented x 3. No acute neurological deficits. Speech is normal and follows commands. SKIN: Dry and warm GCS: 15 Triage Information Reviewed: Yes Vital Signs On Initial Exam: Initial Vitals Pulse Pulse Ox 70 99 10/21/18 15:03 10/21/18 15:03 Vital Signs Reviewed: Yes Diagnostics - Vital Signs Vital Signs Temp Pulse Resp BP Pulse Ox 10/21/18 15:05 74 126/95 99 10/21/18 15:04 96.8 F 68 20 126/95 99 10/21/18 15:03 70 99 - Laboratory Result Diagrams: 10/21/18 15:49 10/21/18 15:49 Lab Statement: Any lab studies that have been ordered have been reviewed, and results considered in the medical decision making process. - Radiology CXR Radiology Interpretation Completed By: Radiologist Summary of Radiographic Findings: NO ACTIVE CARDIOPULMONARY DISEASE IS NOTED. Dr. Luong has reviewed this radiology report. - CT Brain CT Interpretation Completed By: Radiologist Summary of CT Findings: No evidence of intracranial mass or hemorrhage is noted. No changes noted since September 20, 2016. Dr. Luong has reviewed this radiology report. - EKG 1530 Cardiac Rate: NL - 62 BPM EKG Rhythm: Sinus Rhythm EKG Comparison: No Significant Change Summary of EKG Findings: NSR 62 BPM, Q waves in inferior leads, similar to previous EKG taken 09/21/2018. Re-Evaluation - Re-Evaluation First Eval Re-Evaluation Time: 17:44 Comment: Discussed results with patient. Patient will be discharged home with dx of dizziness. Patient understands and agrees with this plan. Complex Multi-Symp Course/Dx Course Of Treatment: This patient is an 82 year old F BIBA to ED via EMS with a chief complaint of dizziness and weakness since this morning. Blood work and UA obtained. In the ED course, patient received fluids and Zofran. EKG at 1530 revealed NSR 62 BPM, Q waves in inferior leads, similar to previous EKG taken . NO ACTIVE CARDIOPULMONARY DISEASE IS NOTED. Brain CT revealed No evidence of intracranial mass or hemorrhage is noted. No changes noted since September 20, 2016. I discussed results with patient, and she reports feeling better. She is hemodynamically stable and safe for discharge. Strict return precautions given and she will otherwise follow up with her PCP. Patient will be discharged home with dx of dizziness. - Diagnoses Provider Diagnoses: Dizziness Discharge - Sign-Out/Discharge Documenting (check all that apply): Patient Departure - Discharge Patient Received Moderate/Deep Sedation with Procedure: No - Discharge Plan Condition: Stable Disposition: HOME Patient Education Materials: Dizziness (ED) Referrals: Ayanna Barakat MD [Primary Care Provider] - 3 Days Additional Instructions: Follow up with your primary care physician in 1-3 days. RETURN TO THE EMERGENCY DEPARTMENT FOR CHANGING OR WORSENING SYMPTOMS. - Billing Disposition and Condition Condition: STABLE Disposition: Home - Attestation Statements Document Initiated by Scribe: Yes Documenting Scribe: Boyd Rey Provider For Whom June is Documenting (Include Credential): Scarlett Luong MD Scribe Attestation: Boyd Henning, scribed for Scarlett Luong MD on 10/23/18 at 0752. Scribe Documentation Reviewed: Yes Provider Attestation: The documentation as recorded by the Boyd peters accurately reflects the service I personally performed and the decisions made by me, Scarlett Luong MD Status of Scribe Document: Viewed
[2018-10-21 16:01] LABS: ABS Eosinophils 0.1 10^3/ul (0-0.6); ABS Lymphocytes 1.3 10^3/ul (1.0-4.8); ABS Monocytes 0.5 10^3/ul (0-0.8); ABS Neutrophils 8.3 10^3/ul (1.5-7.7); Eosinophil % 0.7 %; Hematocrit 40 % (35-47); Hemoglobin 13.2 g/dL (12.0-16.0); Mean Corpuscular HGB Conc 33 g/dL (31-36); Mean Corpuscular Hemoglobin 27 pg (27-31); Mean Corpuscular Volume 83 fL (80-97); Mean Platelet Volume 7.9 fL (7.4-10.4); Platelet Count 233 10^3/uL (150-450); Red Cell Distribution Width 15 % (10-15); White Blood Count 10.3 10^3/uL (3.5-10.8)
[2018-10-21 16:13] LABS: Activated Partial Thrombo Time 33.4 seconds (26.0-38.0); INR 0.95 (0.82-1.09)
[2018-10-21 16:18] LABS: Albumin 4.3 g/dL (3.2-5.2); Albumin/Globulin Ratio 1.3 (1-3); BUN/Creatinine Ratio 16.7 (8-20); Calcium 9.5 mg/dL (8.6-10.3); EGFR African American 93.4 (>60); EGFR Non-African American 77.2 (>60); Globulin 3.3 g/dL (2-4); Magnesium 1.9 mg/dL (1.9-2.7); Potassium 3.8 mmol/L (3.5-5.0); Total Bilirubin 0.5 mg/dL (0.2-1.0); Total Protein 7.6 g/dL (6.4-8.9)
[2018-10-21 16:48] LABS: TSH (Thyroid Stimulating Horm) 8.25 mcIU/mL (0.34-5.60)
[2018-10-21 17:36] VITALS: BP 171/93
[2018-10-21 17:39] LABS: Urine Appearance Clear; Urine Bilirubin Negative (Negative); Urine Blood Negative (Negative); Urine Color Yellow; Urine Glucose Negative (Negative); Urine Ketones 1+ (Negative); Urine Nitrite Negative (Negative); Urine Protein Negative (Negative); Urine Specific Gravity 1.014 (1.010-1.030); Urine Urobilinogen Negative (Negative)
== END | disposition home or self-care (01) ==
LOC: ED 14:52
DX: R42 Dizziness and giddiness (principal); E03.9 Hypothyroidism, unspecified; Z88.4 Allergy status to anesthetic agent; Z88.8 Allergy status to other drugs, medicaments and biological substances; Z87.891 Personal history of nicotine dependence
CPT/HCPCS: 36415; 70450; 71045; 80053; 81003; 83605; 83735; 83880; 84443; 84484; 85025; 85610; 85730; 87040; 93005; 96361; 96374; 99282; J2405

== ENCOUNTER 2023-06-26 09:24 | Inpatient (IN) ==
[2023-06-26 12:10] LABS: ABS Eosinophils 0.2 10^3/uL (0.0-0.5); ABS Lymphocytes 1.4 10^3/uL (1.0-4.8); ABS Monocytes 0.8 10^3/uL (0.0-0.9); ABS Neutrophils 9.9 10^3/uL (1.5-7.6); Eosinophil % 1.5 %; Hematocrit 35.3 % (35-45); Hemoglobin 11.5 g/dL (11.5-14.3); Lymphocyte % 11.1 %; Mean Corpuscular Hemoglobin 26.4 pg (27-33); Mean Corpuscular Hgb Conc 32.5 g/dL (31-36); Mean Corpuscular Volume 81.1 fL (80-97); Mean Platelet Volume 7.6 fL (7.5-11.2); Platelet Count 257 10^3/uL (150-450); Red Blood Count 4.35 10^6/uL (3.63-4.92); Red Cell Distribution Width 13.4 % (12-17); White Blood Count 12.3 10^3/uL (3.8-11.8)
[2023-06-26 12:23] LABS: INR 0.99 (0.83-1.13)
[2023-06-26 12:55] LABS: Albumin 3.8 g/dL (3.2-5.2); Albumin/Globulin Ratio 1.6 (1-3); Calcium 8.8 mg/dL (8.6-10.3); Creatinine, Serum 0.79 mg/dL (0.51-0.95); Globulin 2.4 g/dL (2-4); Total Bilirubin 0.4 mg/dL (0.2-1.0); Total Protein 6.2 g/dL (6.4-8.9); eGFR CKD-EPI 71.5 (>60)
[2023-06-26] MEDS: Heparin 5000 UNITS/ML 1 mL VIAL SUBCUT SCH (14:18)
[2023-06-27 06:44] LABS: ABS Eosinophils 0.2 10^3/uL (0.0-0.5); ABS Lymphocytes 1.7 10^3/uL (1.0-4.8); ABS Neutrophils 9.3 10^3/uL (1.5-7.6); Eosinophil % 1.4 %; Hematocrit 35.3 % (35-45); Hemoglobin 11.7 g/dL (11.5-14.3); Lymphocyte % 13.7 %; Mean Corpuscular Hemoglobin 26.7 pg (27-33); Mean Corpuscular Hgb Conc 33.2 g/dL (31-36); Mean Corpuscular Volume 80.4 fL (80-97); Mean Platelet Volume 8.2 fL (7.5-11.2); Platelet Count 236 10^3/uL (150-450); Red Blood Count 4.39 10^6/uL (3.63-4.92); Red Cell Distribution Width 13.3 % (12-17); White Blood Count 12.2 10^3/uL (3.8-11.8)
[2023-06-27 07:02] LABS: Albumin 3.8 g/dL (3.2-5.2); Albumin/Globulin Ratio 1.5 (1-3); Calcium 8.6 mg/dL (8.6-10.3); Creatinine, Serum 0.81 mg/dL (0.51-0.95); Globulin 2.5 g/dL (2-4); Magnesium 1.8 mg/dL (1.9-2.7); Total Bilirubin 0.6 mg/dL (0.2-1.0); Total Protein 6.3 g/dL (6.4-8.9); eGFR CKD-EPI 69.3 (>60)
[2023-06-27] MEDS ORDERED: ceFAZolin 2 GM PREMIX 2 GM/50 ML BAG ONE (10:26)
[2023-06-27] MEDS ORDERED: Phenylephrine IV 10 MG/ML 1 ml VIAL ONE (11:28)
[2023-06-27] MEDS ORDERED: Propofol 10 MG/ML 20 ML BTL ONE (11:29)
[2023-06-27] MEDS ORDERED: Lidocaine 2% PF 5 ML VIAL ONE (11:29)
[2023-06-27] MEDS ORDERED: fentaNYL 100 mcg/2 ml 50 MCG/ML VIAL ONE (11:52)
[2023-06-27] MEDS ORDERED: fentaNYL 100 mcg/2 ml 50 MCG/ML VIAL IV PRN (12:12)
[2023-06-27] MEDS ORDERED: Naloxone 0.4 mg VIAL 0.4 mg/ml 1 ml VIAL IV PRN (12:12)
[2023-06-27] MEDS ORDERED: HYDROcodone/ACETAMIN 5/325 mg TAB PO PRN (12:12)
[2023-06-27 13:35] LABS: Hematocrit 33.7 % (35-45); Hemoglobin 11.2 g/dL (11.5-14.3)
[2023-06-27] MEDS ORDERED: Polyethylene Glycol 3350 17 GM PACKET PO PRN (14:43)
[2023-06-27] MEDS ORDERED: Senna TAB 8.6 mg TAB PO PRN (14:43)
[2023-06-27] MEDS: Lactated Ringers 1000 ml BAG 1,000 ML IV SCH (14:55)
[2023-06-27] MEDS: ceFAZolin 1 GM ADVAN 1 GM in NS 0.9% 50 ML 50 ML IVPB SCH (21:48)
[2023-06-28 06:28] LABS: ABS Eosinophils 0.3 10^3/uL (0.0-0.5); ABS Lymphocytes 1.3 10^3/uL (1.0-4.8); ABS Monocytes 1.1 10^3/uL (0.0-0.9); ABS Neutrophils 8.6 10^3/uL (1.5-7.6); Eosinophil % 2.9 %; Hemoglobin 9.7 g/dL (11.5-14.3); Lymphocyte % 11.4 %; Mean Corpuscular Hemoglobin 26.8 pg (27-33); Mean Corpuscular Hgb Conc 33.5 g/dL (31-36); Mean Corpuscular Volume 79.9 fL (80-97); Mean Platelet Volume 8.1 fL (7.5-11.2); Platelet Count 194 10^3/uL (150-450); Red Blood Count 3.63 10^6/uL (3.63-4.92); Red Cell Distribution Width 13.3 % (12-17); White Blood Count 11.4 10^3/uL (3.8-11.8)
[2023-06-28 06:44] LABS: Calcium 7.7 mg/dL (8.6-10.3); Creatinine, Serum 0.72 mg/dL (0.51-0.95); Potassium 3.9 mmol/L (3.5-5.0); eGFR CKD-EPI 79.9 (>60)
[2023-06-28] MEDS: Enoxaparin 40 MG/0.4 ML SYR SUBCUT SCH (09:23)
[2023-06-28] MEDS: Magnesium Hydroxide LIQ 30 ML UDC PO PRN (13:01)
[2023-06-29 05:20] LABS: ABS Basophils 0.1 10^3/uL (0.0-0.1); ABS Eosinophils 0.4 10^3/uL (0.0-0.5); ABS Lymphocytes 1.4 10^3/uL (1.0-4.8); ABS Monocytes 1.1 10^3/uL (0.0-0.9); ABS Neutrophils 8.1 10^3/uL (1.5-7.6); ABS Nucleated RBC 0.01 10^3/ul; Eosinophil % 3.3 %; Hematocrit 28.5 % (35-45); Hemoglobin 9.8 g/dL (11.5-14.3); Mean Corpuscular Hemoglobin 27.3 pg (27-33); Mean Corpuscular Hgb Conc 34.2 g/dL (31-36); Mean Corpuscular Volume 79.9 fL (80-97); Mean Platelet Volume 7.8 fL (7.5-11.2); Platelet Count 206 10^3/uL (150-450); Red Blood Count 3.57 10^6/uL (3.63-4.92); Red Cell Distribution Width 13.3 % (12-17)
[2023-06-29 05:35] LABS: Creatinine, Serum 0.83 mg/dL (0.51-0.95); Potassium 4.4 mmol/L (3.5-5.0); eGFR CKD-EPI 67.3 (>60)
[2023-06-30 08:12] LABS: ABS Basophils 0.1 10^3/uL (0.0-0.1); ABS Eosinophils 0.4 10^3/uL (0.0-0.5); ABS Lymphocytes 1.6 10^3/uL (1.0-4.8); ABS Monocytes 0.9 10^3/uL (0.0-0.9); ABS Neutrophils 6.9 10^3/uL (1.5-7.6); Eosinophil % 3.6 %; Hematocrit 29.5 % (35-45); Lymphocyte % 16.2 %; Mean Corpuscular Hemoglobin 27.2 pg (27-33); Mean Corpuscular Hgb Conc 33.8 g/dL (31-36); Mean Corpuscular Volume 80.5 fL (80-97); Mean Platelet Volume 7.9 fL (7.5-11.2); Platelet Count 252 10^3/uL (150-450); Red Blood Count 3.67 10^6/uL (3.63-4.92); Red Cell Distribution Width 13.3 % (12-17); White Blood Count 9.8 10^3/uL (3.8-11.8)
[2023-06-30 10:45] VITALS: BP 131/66
== END 2023-06-30 14:30 | disposition home or self-care (01) | DRG 482 ==
LOC: EDHOLD 09:24 → ED 09:24 → SUATTDRO 12:17 → SSU 14:38
PROVIDERS: ADMIT Hospitalist; ATTEND Internal Medicine